=== PATIENT | female | born 1995 | race Hispanic/Latino ===

== ENCOUNTER 2019-02-25 17:10 | Emergency (ER) | payer MEDICAID, OTHER ==
[~2019-02-25 17:10] MED LIST: PREN-145 PO
[2019-02-25] MEDS ORDERED: ACETAMINOPHEN EXTRA STRENGTH 500 MG TABLET ONE (17:27)
[2019-02-25 17:51] LABS: APPEARANCE,URINE Cloudy (CLEAR); BILIRUBIN,URINE Small (NEGATIVE); COLOR,URINE Dark Yellow (YELLOW); GLUCOSE, URINE (UA) Negative (NEGATIVE); KETONES,URINE 15 mg/dL (NEGATIVE); LEUKOCYTE ESTERASE ,URINE Moderate (NEGATIVE); NITRATE,URINE Negative (NEGATIVE); OCCULT BLOOD,URINE Negative (NEGATIVE); PH,URINE 5.5 (5.0-8.0); PROTEIN,URINE POS 2+ mg/dL (NEGATIVE)
[2019-02-25 17:52] LABS: HCG,QUAL RESULT NEGATIVE (NEGATIVE)
[2019-02-25 18:02] LABS: BACTERIA,URINE Rare /HPF (None Seen); MUCUS,URINE Many LPF (None Seen); RBC,URINE None Seen /HPF (0-1); WBC,URINE >100 /HPF (0-1)
[2019-02-25] MEDS ORDERED: CEFTRIAXONE SODIUM 1 GM ONE (18:25)
[2019-02-25] MEDS ORDERED: LIDOCAINE HCL-MPF 1% 2ML VIAL ONE (18:25)
== END 2019-02-25 18:46 | disposition home or self-care (01) ==
LOC: EDH 17:10
DX: J06.9 Acute upper respiratory infection, unspecified (principal); N39.0 Urinary tract infection, site not specified; Z90.49 Acquired absence of other specified parts of digestive tract
CPT/HCPCS: 81001; 81025; 87804 ×2; 96372; 99283; J0696; J3490

== ENCOUNTER 2019-12-07 01:47 | Emergency (ER) | payer OTHER ==
[2019-12-07] MEDS ORDERED: ACETAMINOPHEN EXTRA STRENGTH 500 MG TABLET ONE (02:19)
== END 2019-12-07 02:56 | disposition home or self-care (01) ==
LOC: EDH 01:47
DX: O26.891 Other specified pregnancy related conditions, first trimester (principal); J10.1 Influenza due to other identified influenza virus with other respiratory manifestations; Z3A.10 10 weeks gestation of pregnancy; Z90.49 Acquired absence of other specified parts of digestive tract; Z88.6 Allergy status to analgesic agent
CPT/HCPCS: 87880

== ENCOUNTER 2019-12-13 00:25 | Emergency (ER) | payer OTHER | END 2019-12-13 01:59 | disposition home or self-care (01) | LOC: EDH 00:25 | DX: O26.891 Other specified pregnancy related conditions, first trimester (principal); H65.02 Acute serous otitis media, left ear; Z88.6 Allergy status to analgesic agent; Z79.899 Other long term (current) drug therapy; Z90.49 Acquired absence of other specified parts of digestive tract; Z98.890 Other specified postprocedural states; Z3A.09 9 weeks gestation of pregnancy | CPT/HCPCS: 94640 ==

== ENCOUNTER 2022-11-10 00:03 | Emergency (ER) | payer MEDICAID ==
[~2022-11-10] VITALS: Ht 147.3 cm; Wt 51.3 kg
[2022-11-10] MEDS ORDERED: LACTATED RINGERS 1000ML 1,000 ML IV ONE (00:30)
[2022-11-10 00:40] LABS: BASOPHILS % (AUTO) 0.3 % (0.0-5.0); EOSINOPHILS % (AUTO) 1.4 % (0.0-8.0); HEMATOCRIT 40.4 % (36-48); LYMPHOCYTES % (AUTO) 8.4 % (21.0-51.0); MEAN CORPUSCULAR HEMOGLOBIN 31.3 pg (27.0-33.0); MEAN CORPUSCULAR HGB CONC 33.4 g/dL (32.0-36.0); MEAN CORPUSCULAR VOLUME 93.7 fL (79-99); MONOCYTES % (AUTO) 7.4 % (3.0-13.0); NEUTROPHILS % (AUTO) 82.1 % (40.0-77.0); PLATELET COUNT (AUTO) 206 K/uL (130-400); RED BLOOD CELL COUNT(AUTO) 4.31 MIL/uL (4.00-5.50); RED CELL DISTRIBUTION WIDTH 12.4 % (11.0-15.5); WHITE BLOOD COUNT (AUTO) 11.1 K/uL (4.8-10.8)
[2022-11-10 00:50] LABS: CARBON DIOXIDE 28 mmol/L (21-32); CHLORIDE 104 mmol/L (101-111); CREATININE 0.7 mg/dL (0.5-1.5); GLOMERULAR FILTR. RATE CALC 106 mL/min (>60); GLUCOSE,RANDOM 105 mg/dL (70-105); POTASSIUM 3.5 mmol/L (3.5-5.1); SODIUM SERUM 139 mmol/L (136-145); UREA NITROGEN, BLOOD 9 mg/dL (7-18)
[2022-11-10 00:51] LABS: INR 0.97 (0.85-1.15); PROTHROMBIN TIME 10.6 SEC (9.6-11.6)
[2022-11-10 00:53] LABS: PARTIAL THROMBOPLASTIN TIME 26.3 SEC (26.3-35.5)
[2022-11-10 01:03] LABS: ALANINE AMINOTRANSFERASE 17 U/L (12-78); ALBUMIN 3.8 g/dL (3.5-5.0); ALCOHOL, BLOOD < 3 mg/dL (0-10); ASPARTATE AMINOTRANSFERASE 24 U/L (10-37); CREATINE KINASE, TOTAL 67 U/L (21-232); MYOGLOBIN 104 ng/mL (10-92); TOTAL PROTEIN, SERUM 7.6 g/dL (6.0-8.3)
[2022-11-10] MEDS ORDERED: IOHEXOL 350 MG/ML 100ML INFUS..BTL IV ONE (01:27)
[2022-11-10] MEDS ORDERED: IBUP-1493 PO (03:07)
[2022-11-10 03:36] LABS: APPEARANCE,URINE CLEAR (CLEAR); BILIRUBIN,URINE NEGATIVE (NEGATIVE); COLOR,URINE COLORLESS (YELLOW); GLUCOSE, URINE (UA) NEGATIVE (NEGATIVE); KETONES,URINE NEGATIVE (NEGATIVE); LEUKOCYTE ESTERASE ,URINE NEGATIVE Leu/uL (NEGATIVE); NITRATE,URINE NEGATIVE (NEGATIVE); OCCULT BLOOD,URINE NEGATIVE (NEGATIVE); PROTEIN,URINE NEGATIVE (NEGATIVE); SQUAMOUS EPITHELIAL CELL,UR FEW /HPF (0-2); UROBILINOGEN,URINE 0.2 mg/dL (0.2-1.0)
[2022-11-10 03:42] VITALS: BP 102/68
== END 2022-11-10 04:13 | disposition home or self-care (01) ==
LOC: EDH 00:03
DX: S12.500A Unspecified displaced fracture of sixth cervical vertebra, initial encounter for closed fracture (principal); S80.02XA Contusion of left knee, initial encounter; S80.01XA Contusion of right knee, initial encounter; Z88.5 Allergy status to narcotic agent; Z90.49 Acquired absence of other specified parts of digestive tract; Z98.890 Other specified postprocedural states; F17.200 Nicotine dependence, unspecified, uncomplicated; V89.2XXA Person injured in unspecified motor-vehicle accident, traffic, initial encounter; Y93.89 Activity, other specified; Y92.89 Other specified places as the place of occurrence of the external cause; Y99.8 Other external cause status
CPT/HCPCS: 99285; 70450; 82550; 83874; 84484; 80053; 85025; 85610; 85730; 81001; 36415; 73590 ×2; 72125; 71260; 74177; 93005; 96360; J7120; Q9967

== ENCOUNTER 2025-03-05 23:40 | Emergency (ER) | payer SELFPAY ==
[~2025-03-05] VITALS: Ht 162.6 cm; Wt 49.9 kg
[~2025-03-05 23:40] MED LIST changes: +HYDR50CA50 PO; +IBUP-1493 PO
--- NOTE | 2025-03-06 00:17 | NUR ---
[facility] CALLED; PER SHIFT SUPERVISOR IS COMMING TO SPEAK TO PATIENT. NO REFERENCE/CASE NUMBER GIVEN AT THIS TIME.
[2025-03-06] MEDS ORDERED: AMOX-427 PO (00:22)
--- NOTE | 2025-03-06 00:24 | ERN ---
General Chief Complaint: Animal Bite Stated Complaint: DOG BITE TO LEFT BUTTOCKS Time Seen by MD: 00:07 History of Present Illness Initial Comments Patient was bitten on the left buttocks by a stray dog. She comes in for wound care. Allergies: Coded Allergies: morphine (Unverified Allergy, Unknown, 10/02/15) Home Meds Active Scripts Hydroxyzine Pamoate (Hydroxyzine Pamoate) 50 Mg Capsule, 50 MG PO AD, #60 CAP Take 1 capsule every 6-8 hours as needed for anxiety or insomnia. Prov:STEPHANIE MOREIRA BLANCHING MACHINE OPERATOR 03/18/24 Ibuprofen (Motrin/Advil) 800 Mg Tab, 800 MG PO TID, #30 TAB Prov:NOVA JORGE MD 11/10/22 Reported Medications Vit#86/Iron Bisgly/FA (Nestabs Tablet) 1 Each Tablet, 1 EACH PO DAILYDINNER, TAB 09/30/15 Past Medical History Past Medical History: Anxiety Past Surgical History: Appendectomy, Cholecystectomy, Social History Social History: Smokers, ETOH ROS Dictation Aside from the chief complaint review of systems is negative no signs or symptoms of infection no shortness of breath no chest pain no nausea no vomiting no diarrhea normal urination normal bowel movements no abdominal pain moves all extremities. Physical Exam General Appearance: (+) no apparent distress Orientation: (+) oriented x 3 Head/Face Trauma: No Extremities Comment Left buttocks as superficial dog bites none of them are deep. None of them need irrigation. MDM Patient has a superficial dog bites they appear to be simple scratches in the skin. Patient does not know her tetanus status. I will give her a tetanus shot I will give her a short course of Augmentin. The dog will be reported to animal control. She needs to follow up with them. ED Course Vital Signs Date Time Temp Pulse Resp B/P (MAP) Pulse Ox O2 Delivery O2 Flow Rate FiO2 03/05/25 23:41 98.2 75 16 120/74 99 Room Air 0 DX & DISP Disposition: Discharge Departure Impression: Primary Impression: Dog bite of buttock Condition: Stable Scripts Amoxicillin/Potassium Clav (Augmentin Xr 1,000-62.5 Tab) 1,000 Mg-62.5 Mg Tab.er.12h 1 TAB PO BID for 10 Days, #20 TAB 0 Refills with food Prov: YAHAIRA DEXTER MD 03/06/25 Additional Instructions: Please return if you have signs and symptoms of infection redness swelling drainage. The bites can be treated with bacitracin. Please connect with animal control to see if the animal has rabies such as pain in the area fatigue loss of appetite delirium nausea vomiting muscle spasms. Referrals: NONE (PCP) YAHAIRA DEXTER MD Mar 06, 2025 00:24
--- NOTE | 2025-03-06 00:37 | NUR ---
WOUND CARE DONE ORDERED
--- NOTE | 2025-03-06 00:39 | NUR ---
DELMAR THOMAS AT BEDSIDE TO MAKE REPORT AT THIS TIME
[2025-03-06] MEDS: DIPH,PERTUSS(ACELL),TET VAC/PF 0.5 ML VIAL IM ONE (00:59)
[2025-03-06 01:04] VITALS: BP 110/64; PULSE 68; RESP 18; TEMP 98.2; O2SAT 99
== END 2025-03-06 01:05 | disposition home or self-care (01) ==
LOC: EDH 03-06 00:02
DX: S31.825A Open bite of left buttock, initial encounter (principal); F41.9 Anxiety disorder, unspecified; F17.200 Nicotine dependence, unspecified, uncomplicated; Z79.1 Long term (current) use of non-steroidal anti-inflammatories (NSAID); Z88.5 Allergy status to narcotic agent; Z90.49 Acquired absence of other specified parts of digestive tract; W54.0XXA Bitten by dog, initial encounter; Y93.89 Activity, other specified; Y92.89 Other specified places as the place of occurrence of the external cause; Y99.8 Other external cause status
CPT/HCPCS: 90471; 90715; 99283